=== PATIENT | male | born 1985 | race African-American/Black ===

== ENCOUNTER 2016-06-25 11:05 | Emergency (ER) | payer SELFPAY ==
[~2016-06-25] VITALS: Ht 213.4 cm; Wt 127.0 kg
[~2016-06-25 11:05] MED LIST: BACITRACIN15 GM TOPIC; CEPHALEXIN500 MG ORAL; FLOMAX0.4 MG ORAL; HYDROCHLOROTHIA25 MG ORAL; IBUPROFEN600 MG ORAL; IBUPROFEN800 MG ORAL; KEFLEX500 MG ORAL; NKM; NORCO 5-325 TA1 EACH ORAL
[2016-06-25] MEDS ORDERED: Morphine Sulfate 4mg/ml Inj IM ONE (11:30)
[2016-06-25] MEDS ORDERED: Ketorolac 30mg Inj IM ONE (11:30)
[2016-06-25] MEDS ORDERED: Dexamethasone 4mg/ml vial IVP ONE (11:45)
[2016-06-25] MEDS ORDERED: Morphine Sulfate 4mg/ml Inj IVP ONE (11:45)
[2016-06-25 11:58] LABS: MEAN CORPUSCULAR HEMOGLOBIN 27.5 PG (27.0-31.0); MEAN CORPUSCULAR HGB CONC 33.6 G/DL (32.0-36.0); MEAN CORPUSCULAR VOLUME 82 FL (80-99); MEAN PLATELET VOLUME 8.3 FL (6.5-10.1); PLATELET COUNT 215 K/UL (150-450); RED BLOOD COUNT 5.21 M/UL (4.70-6.10); RED CELL DISTRIBUTION WIDTH 12.4 % (11.6-14.8); WHITE BLOOD COUNT 12.2 K/UL (4.8-10.8)
[2016-06-25 12:19] LABS: ALANINE AMINOTRANSFERASE 10 U/L (3-41); ALBUMIN/GLOBULIN RATIO 1.2 (1.0-2.7); ANION GAP 14 (5-15); ASPARTATE AMINO TRANSFERASE 24 U/L (5-40); CALCIUM 9.1 mg/dL (8.6-10.2); CARBON DIOXIDE 23 mEQ/L (20-30); CHLORIDE 100 mEQ/L (98-107); CREATININE 0.9 mg/dL (0.7-1.2); GLOMERULAR FILTRATION RATE > 60 mL/min (>60); HEMOLYSIS 14; POTASSIUM 4.4 mEQ/L (3.4-4.9); SODIUM 137 mEQ/L (135-145)
[2016-06-25 12:49] LABS: BAND NEUTROPHILS % (MANUAL) 0 % (0-8); BASOPHILS % (MANUAL) 0 % (0-2); EOSINOPHILS % (MANUAL) 0 % (0-3); HYPOCHROMASIA 1+; LYMPHOCYTES % (MANUAL) 14 % (20-45); NEUTROPHILS % (MANUAL) 83 % (45-75); PLATELET ESTIMATE ADEQUATE; PLATELET MORPHOLOGY NORMAL; TOTAL CELLS COUNTED 100
[2016-06-25] MEDS ORDERED: Ketorolac 30mg Inj IV ONE (13:30)
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
[2016-06-25] MEDS ORDERED: PREDNISONE20 MG ORAL (14:31)
[2016-06-25] MEDS ORDERED: NORCO 5-325 TA1 EACH ORAL (14:31)
[2016-06-25] MEDS ORDERED: ATIVAN1 MG ORAL (14:45)
[2016-06-25 15:05] VITALS: BP 109/74
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
== END 2016-06-25 15:05 | disposition home or self-care (01) ==
LOC: EDBD 11:05 → EMR 12:09
DX: S19.9XXA Unspecified injury of neck, initial encounter (principal); Y09 Assault by unspecified means; Y92.9 Unspecified place or not applicable; Y99.8 Other external cause status
CPT/HCPCS: 36415; 70498; 80053; 85007; 85025; 96372; 96374; 96375; 99284; J1100; J1885; J2270; J7040; Q9967